=== PATIENT | male | born 1985 | race Caucasian/White ===

== ENCOUNTER 2019-04-29 18:38 | Emergency (ER) | payer OTHER, SELFPAY ==
[2019-04-29 18:47] VITALS: BP 139/85; PULSE 77; RESP 15; TEMP 36.7; O2SAT 98
--- NOTE | 2019-04-29 18:59 | ED.GENADUL_ITS ---
Discharge Plan Disposition Patient Disposition: HOME Condition: Improving Discharge Details Chief Complaint: Cellulitis Clinical Impression: Cellulitis of great toe, left Primary Care Provider: Gege Carrera ED Provider: Benson Kirkland Home Meds and New Rx's Prescriptions: New sulfamethoxazole-trimethoprim [Bactrim DS] 800-160 mg tablet 1 tab PO BID 5 Days Qty: 14 RF: 0 Discharge Instructions Instructions: Cellulitis (ED) Additional Instructions: Continue soaking the toe 2-3 times per day and then air dry. Take antibiotic's as prescribed. Return for worsening, development of fever, or any other acute concern Medical Decision Making 34-year-old male presents to the ER stating that he instrumented why that was ingrown toenail at home yesterday with release of a small amount of purulent fluid. Today, his noted a red streak up the leg. This dissipated by the time of arrival. He is afebrile and with normal vital signs. Does not have an ingrown toenail but there is evidence of resolving mild cellulitic changes of the great toe. Likely he did release a small abscess. We will place him on Bactrim. He is to continue soaking the toe at home. He stable for discharge at this time HPI General Mode of arrival: ambulatory . Date/Time Provider Initiated Documentation: 04/29/19 18:52 . Limitations to Documentation: no limitations . Information obtained by: patient . History of Present Illness 34 year old M presents to the emergency department with the chief complaint of Left great toe infection, described as mild, Quality is described as constant, and is localized to the lower extremity. No relieving factors improve symptom(s), No exacerbating factors reported . Patient notes denies fever/chills. Patient did receive the following treatments prior to arrival, none Related Data Home Medications Medication Instructions Recorded Confirmed sulfamethoxazole-trimethoprim 1 tab PO BID 5 Days #14 tab 04/29/19 [Bactrim DS] Previous Rx's Medication Instructions Recorded sulfamethoxazole-trimethoprim 1 tab PO BID 5 Days #14 tab 04/29/19 [Bactrim DS] Allergies Allergy/AdvReac Type Severity Reaction Status Date / Time Penicillins Allergy Unverified 04/29/19 19:01 General Stated Complaint: Cellulitis DAYRL: 3 Review of Systems Review of Systems Question red streak up the leg earlier today. No fever. Patient is otherwise been well. 4 systems reviewed and negative [facility] Social History Smoking/Tobacco Use Status: Never Alcohol Intake: never Substance use type: does not use Do you feel safe at home: Yes Do you feel safe in your relationship?: Yes Exam Narrative Exam Narrative: GEN: awake, alert, oriented 3. Pleasant, well groomed, interactive. HEAD: Normocephalic, atraumatic EYES: PERRL, EOMI NECK: Full ROM, no JUNIE, no menigismus EXT: Full ROM, no edema, no rash. Left great toe with proximal nailbed mild erythema. No significant warmth of the foot. There is no edema. Sensation is intact. Neuro: Grossly normal neurologic exam, conversant, interactive. Psych: Speech fluent, thoughts congruent, affect normal Course Vital Signs Temperature 36.7 C 04/29/19 18:47 Pulse 77 04/29/19 18:47 Respiratory Rate 15 04/29/19 18:47 Blood Pressure 139/85 04/29/19 18:47 Pulse Oximetry 98 04/29/19 18:47 Temperature 36.7 C 04/29/19 18:47 Temperature Source Temporal Artery Scan 04/29/19 18:47 Pulse 77 04/29/19 18:47 Respiratory Rate 15 04/29/19 18:47 Respiratory Effort Non-Labored 04/29/19 18:51 Blood Pressure 139/85 04/29/19 18:47 Blood Pressure Position Sitting 04/29/19 18:47 Pulse Oximetry 98 04/29/19 18:47 Oxygen Delivery Method Room Air 04/29/19 18:47 Oxygen Flow Rate 0 04/29/19 18:47 Pain Level 0 04/29/19 18:47
[2019-04-29] MEDS: Sulfameth/Trimeth DS TAB 1 TAB PO (19:03)
== END 2019-04-29 19:10 | disposition home or self-care (01) ==
PROVIDERS: Emergency Provider Emergency Medicine; PCP Nurse Practitioner Family
DX: L03.032 Cellulitis of left toe (principal)
CPT/HCPCS: 99283

== ENCOUNTER 2019-12-05 01:42 | Emergency (ER) | payer OTHER, SELFPAY ==
[2019-12-05 01:48] VITALS: BP 127/84; PULSE 72; RESP 16; TEMP 36.4; O2SAT 99
[2019-12-05 01:52] VITALS: RESP 16
--- NOTE | 2019-12-05 02:02 | W.ED.GENAD ---
Discharge Plan Disposition Patient Disposition: HOME Condition: Improving Discharge Details Chief Complaint: GenMedical Clinical Impression: Syncope Primary Care Provider: Gege Carrera ED Provider: Benson Kirkland Home Meds and New Rx's Prescriptions: No Action No Known Home Meds RF: 0 Discharge Instructions Instructions: Syncope (ED) Additional Instructions: Your CAT scan of the head, chest x-ray, EKG and laboratories were reassuring. You do appear to be slightly dehydrated. You will benefit from ongoing hydration with small, frequent sips of fluids. You will receive a phone call from diagnostic imaging to schedule a testicular ultrasound tomorrow. Following the ultrasound please return to the ER for results. Home to rest this evening. Return if you have any new symptoms or any other acute concerns. Medical Decision Making 34-year-old male states that he had right testicular swelling and discomfort earlier in the day today. He woke up early this morning to go to the bathroom states he felt pain and his testicle and then had a syncopal event which he struck his head. He denies a prolonged loss of consciousness. He did not hurt his neck or back. He states his testicular pain is now resolved. He arrives with unremarkable vital signs, a reassuring examination without evidence of testicular swelling or mass. Patient referred for screening laboratories, chest x-ray, CT scan of the head. The radiology studies are unremarkable. Laboratories reassuring with unremarkable CBC, chemistries. There is note of a BUN of 23 and urinalysis shows increased concentration of urine with specific gravity 1.02. He is stable and improved, but were discharged home. Given the report of testicular swelling I will have him obtain an outpatient ultrasound. This will be ordered tonight. Lab Data Lab results reviewed: Yes I reviewed the patient's lab results. Labs: Laboratory Results - last 24 hr 12/05/19 12/05/19 12/05/19 02:13 02:13 02:13 WBC 8.27 RBC 5.60 Hgb 16.4 Hct 46.3 MCV 82.7 MCH 29.3 MCHC 35.4 RDW 12.0 Plt Count 199 MPV 9.7 Immature Gran % 0.4 Neutrophils % 72.3 Lymphocytes % 14.0 Monocytes % 10.6 Eosinophils % 2.5 Basophils % 0.2 Absolute Neutrophils 5.97 Absolute Lymphocytes 1.16 L Absolute Monocytes 0.88 H Absolute Eosinophils 0.21 Absolute Basophils 0.02 Sodium 142 Potassium 3.7 Chloride 102 Carbon Dioxide 31.7 Anion Gap 8.3 BUN 23 H Creatinine 1.07 Estimated GFR/1.73 m2 >= 60.00 Glucose 119 H Calcium 8.8 Magnesium 1.9 Total Bilirubin 0.5 AST 26 ALT 63 Alkaline Phosphatase 51 Troponin I < 0.05 Total Protein 7.5 Albumin 4.0 Urine Color Yellow Urine Clarity Clear Urine pH 7.0 Ur Specific Talmo 1.025 Urine Protein Trace H Urine Ketones Negative Urine Blood Negative Urine Nitrite Negative Urine Bilirubin Negative Urine Urobilinogen 0.2 Ur Leukocyte Esterase Negative Urine RBC Negative Urine WBC Negative Ur Epithelial Cells Rare Urine Crystals Negative Urine Bacteria Rare Urine Casts Negative Urine Mucus Negative Ur Culture Indicated? No Urine Glucose Negative ECG Data Attestation: I personally reviewed and interpreted this ECG (s) as follows: Interpretation: Normal sinus rhythm, rate of 66, QRS is narrow, no ST segment elevation, QTc 425 HPI General Mode of arrival: ambulatory. Date/Time Provider Initiated Documentation: 12/05/19 01:43. Limitations to Documentation: no limitations. Information obtained by: patient. History of Present Illness 34 year old M presents to the emergency department with the chief complaint of Syncope at home. Testicular pain that is improved, described as mild and moderate, Quality is described as dull, and is localized to the genitals. Patient reports no radiation. Patient started experiencing this hour(s) and it has been now resolved. No relieving factors improve symptom(s), No exacerbating factors reported . Patient notes headaches and syncope; denies confusion, loss of appetite, nausea/vomiting, shortness of breath and weakness. Patient did receive the following treatments prior to arrival, none Related Data Home Medications Medication Instructions Recorded Confirmed Unknown [No Known Home Meds] 12/05/19 12/05/19 Allergies Allergy/AdvReac Type Severity Reaction Status Date / Time Penicillins Allergy Unverified 12/05/19 01:51 General Stated Complaint: GenMedical DARYL: 3 Review of Systems Narrative: 6 systems reviewed and otherwise negative. No incontinence, no focal weakness, no chest pain, no shortness of breath. [facility] Medical History Meningitis spinal (Acute) Social History Smoking/Tobacco Use Status: Never Alcohol Intake: never Substance use type: does not use Do you feel safe at home: Yes Do you feel safe in your relationship?: Yes Exam Narrative Exam Narrative: GEN: awake, alert, oriented 3. Pleasant, well groomed, interactive. HEAD: Normocephalic, atraumatic ENT: Mucous membranes moist, oropharynx unremarkable, External ear exam unremarkable EYES: PERRL, EOMI NECK: Full ROM, no JUNIE, no menigismus CHEST/RESP: Nontender, clear to auscultation bilateral, no wheeze/rhonchi/rales CARDIOVASCULAR: RRR, no murmur, rub stefanie. 2+ Rad pulse bilateral ABDOMEN: Soft, nontender, no mass. +Bowel sounds. The testes are descended, symmetric, nontender bilaterally EXT: Full ROM, no edema, no rash Neuro: Grossly normal neurologic exam, conversant, interactive. Psych: Speech fluent, thoughts congruent, affect normal Course Vital Signs Vital signs: Vital Signs Temperature 36.4 C L 12/05/19 01:48 Pulse 72 12/05/19 01:48 Respiratory Rate 16 12/05/19 01:48 Blood Pressure 127/84 12/05/19 01:48 Pulse Oximetry 99 12/05/19 01:48 Temperature 36.4 C L 12/05/19 01:48 Temperature Source Oral 12/05/19 01:48 Pulse 72 12/05/19 01:48 Respiratory Rate 16 12/05/19 01:52 Respiratory Effort Non-Labored 12/05/19 01:52 Respiratory Depth Normal 12/05/19 01:52 Blood Pressure 127/84 12/05/19 01:48 Pulse Oximetry 99 12/05/19 01:48 Pain Level 5 12/05/19 01:48
[2019-12-05] MEDS: Normal Saline 1,000 ML 1000 ML IV (02:22)
[2019-12-05 02:23] LABS: Bilirubin Negative (Negative); Blood Negative (Negative); Clarity Clear (Clear); Glucose Negative (Negative); Ketones Negative (Negative); Leukocyte Esterase Negative (Negative); Nitrite Negative (Negative); Specific Gravity 1.025 (1.005-1.025); Urobilinogen 0.2 EU/dL (Up TO 0.2)
[2019-12-05 02:24] LABS: Abs Immature Grans 0.03 k/cumm (0.0-0.09); Absolute Basophil Count 0.02 k/cumm (0.0-0.2); Absolute Eosinophil Count 0.21 k/cumm (0.0-0.7); Absolute Lymphocyte Count 1.16 k/cumm (1.2-3.4); Absolute Monocyte Count 0.88 k/cumm (0.11-0.7); Absolute Neutrophil Count 5.97 k/cumm (1.2-6.7); Basophils % 0.2; Eosinophils % 2.5; HCT 46.3 % (40.0-50.0); HGB 16.4 g/dL (13.5-17.5); Immature Grans % 0.4 %; Mean Corp. HGB Concentration 35.4 g/dL (32.0-36.0); Mean Corpuscular Hemoglobin 29.3 pg (27.0-33.0); Mean Corpuscular Volume 82.7 fL (80-95); Mean Platelet Volume 9.7 fL (8.0-11.0); Monocytes % 10.6; Neutrophils % 72.3; Platelet Count 199 x1000/uL (130-400); White Blood Cell Count 8.27 k/cumm (4.4-10.8)
--- NOTE | 2019-12-05 02:28 | DI.CT_ITS ---
EXAM: CT HEAD WO CLINICAL HISTORY: Fall, L frontal contusion, syncope. TECHNIQUE: Imaging Protocol: Axial computed tomography images with coronal and sagittal reformatted images were created and reviewed COMPARISON: No exams were available for comparison FINDINGS: Ventricles and Extra axial spaces: Normal in size and morphology for the patient's age. Hemorrhage: None. Cerebral parenchyma: Normal. Midline shift: None. Brainstem/Cerebellum: Normal. Calvarium: Normal. Visualized Paranasal sinuses/Mastoids: Clear. Soft Tissues: Unremarkable. IMPRESSION: No acute intracranial process. RADIATION DOSE DELIVERED: DATA REPOSITORY: All CT scans at this facility are submitted to the National Radiology Data Registry (NRDR) Dose Index Registry (DIR) with the [employer] ([employer]). RADIATION OPTIMIZATION: All CT scans at this facility use at least one of these dose optimization te chniques: automated exposure control; mA and/or kV adjustment per patient size (includes targeted exa ms where dose is matched to clinical indication); or iterative reconstruction.
[2019-12-05 02:30] LABS: Bacteria Rare HPF (Negative); C & S Indicated? No; Casts Negative LPF (Negative); Crystals Negative HPF (Negative); Epithelial Cells Rare HPF (Negative); Mucus Negative (Negative); RBC Negative HPF (0-2); WBC Negative HPF (0-5)
--- NOTE | 2019-12-05 02:30 | DI.RAD_ITS ---
EXAM: XR CHEST 2V PA LATERAL CLINICAL HISTORY: Syncope TECHNIQUE: 2D digital imaging was performed. COMPARISON: No exams were available for comparison FINDINGS: MEDIASTINUM: Normal. HEART: Normal. PULMONARY VASCULATURE: Normal. LUNGS: Clear. PLEURAL SPACE: No pleural effusion or pneumothorax. BONE:Normal. OTHER FINDINGS:Normal. IMPRESSION: No acute pulmonary findings. DATA REPOSITORY: RADIATION DOSE DELIVERED:
[2019-12-05 02:40] LABS: ALT 63 U/L (16-63); AST 26 U/L (15-37); Alkaline Phosphatase 51 U/L (46-116); Anion Gap 8.3 mmol/L (3-11); BUN 23 mg/dL (7-18); Bilirubin, Total 0.5 mg/dL (0.2-1.0); CO2 31.7 mmol/L (21.0-32.0); CREATININE 1.07 mg/dL (0.70-1.30); Calcium 8.8 mg/dL (8.5-10.1); Chloride 102 mmol/L (98-107); Glucose 119 mg/dL (74-106); Magnesium 1.9 mg/dL (1.8-2.4); Potassium 3.7 mmol/L (3.5-5.1); Sodium 142 mmol/L (136-145); Total Protein 7.5 g/dL (6.4-8.2)
[2019-12-05 02:41] LABS: Troponin I < 0.05 ng/Ml (<0.06)
--- NOTE | 2019-12-05 02:43 | DI.VRAD_ITS ---
PROCEDURE INFORMATION: Exam: XR Chest, 2 Views Exam date and time: 12/05/2019 2:23 AM Age: 34 years old Clinical indication: Injury or trauma; Fall; Initial encounter; Sprain or strain; Patient HX: Syncope TECHNIQUE: Imaging protocol: XR of the chest Views: 2 views. COMPARISON: No relevant prior studies available. FINDINGS: Lungs: The lungs are clear throughout with no mass or consolidation seen. Pleural space: Pleural margins are sharply defined and there is no pneumothorax or pleural effusion. Heart/Mediastinum: Heart size is normal and vessel margins are sharply defined. Bones/joints: Osseous structures appear grossly intact. IMPRESSION: No acute cardiopulmonary process. Dictated and Authenticated by: Anibal Perez MD. Ordering:BOBBY Knowles MD
--- NOTE | 2019-12-05 02:48 | DI.VRAD_ITS ---
PROCEDURE INFORMATION: Exam: CT Head Without Contrast Exam date and time: 12/05/2019 2:02 AM Age: 34 years old Clinical indication: Injury or trauma; Initial encounter; Blunt trauma (contusions or hematomas); With loss of consciousness; Not specified; Patient HX: S/P fall, L frontal contusion, syncope, pain behind left ear TECHNIQUE: Imaging protocol: Computed tomography of the head without contrast. Radiation optimization: All CT scans at this facility use at least one of these dose optimization techniques: automated exposure control; mA and/or kV adjustment per patient size (includes targeted exams where dose is matched to clinical indication); or iterative reconstruction. COMPARISON: No relevant prior studies available. FINDINGS: Brain: Cerebral sulci show bilateral symmetry with no supratentorial mass or mass effect detected. Brainstem and cerebellum are normal in appearance. No significant foci of abnormal increased or decreased attenuation are seen within the brain parenchyma. There is no evidence of acute infarct or intracranial hemorrhage. Ventricles: Ventricular and cisternal spaces are normal in size and configuration and there is no midline shift or hydrocephalus seen. Bones/joints: Bony calvarium and skull base are intact and no acute fractures are detected. Sinuses: Frontal sinuses are non pneumatized and remaining paranasal sinuses are clear throughout with their bony margins intact at the levels imaged. Mastoid air cells: Normally pneumatized and clear bilaterally. Soft tissues: Unremarkable. IMPRESSION: Unremarkable noncontrast head CT with no evidence of an acute intracranial process. Dictated and Authenticated by: Anibal Perez MD. Ordering:BOBBY Knowles MD
[2019-12-05 03:00] VITALS: BP 126/67; PULSE 86; RESP 16; O2SAT 99
== END 2019-12-05 03:05 | disposition home or self-care (01) ==
PROVIDERS: Emergency Provider Emergency Medicine; PCP Nurse Practitioner Family
DX: R55 Syncope and collapse (principal); E86.0 Dehydration; N50.89 Other specified disorders of the male genital organs
CPT/HCPCS: 36415; 80053; 93005; 96360; 99285; 70450; 71046; 81003; 81015; 83735; 84484; 85025; 93010; 99284

== ENCOUNTER 2019-12-05 09:15 | Outpatient (CLI) | payer OTHER, SELFPAY ==
--- NOTE | 2019-12-05 | DI.US_ITS ---
EXAM: US SCROTUM CLINICAL HISTORY: RT TESTICULAR PAIN. TECHNIQUE: Scrotal ultrasound performed using grayscale, color-flow and spectral Doppler analysis. COMPARISON: No exams were available for comparison FINDINGS: Right testicle: Cm Left testicle: cm Echogenicity: Normal. Contour: Smooth. Mass: None seen. Microlithiasis: None. Hydrocele: Small bilateral hydroceles. 4 millimeter scrotal leroy is seen in the left scrotum. Variocele: None. Hernia: No peristalsing bowel loop identified. Epididymis: Tiny bilateral spermatoceles in the epididymal heads. DOPPLER: Color: Symmetric and uniform, no hyperemia. Duplex: Bilateral testicular arterial waveforms visualized. IMPRESSION: Small bilateral hydroceles. Normal appearing testicles. Left-sided scrotal leroy. No evidence of m ass, torsion or epididymitis.. DATA REPOSITORY:
== END 2019-12-05 09:35 ==
PROVIDERS: PCP Nurse Practitioner Family; Visit Provider Emergency Medicine
DX: N50.811 Right testicular pain (principal); N43.3 Hydrocele, unspecified; N49.2 Inflammatory disorders of scrotum
CPT/HCPCS: 76870